=== PATIENT | male | born 1965 | race American Indian/Alaskan Native ===

== ENCOUNTER 2016-09-12 19:45 | Emergency (ER) | payer BC ==
--- NOTE | 2016-09-13 00:31 | Emergency Department Report ---
ED Anxiety HPI - General Chief Complaint: Medical Clearance Stated Complaint: DIZZINESS,DEPRESSION Time Seen by Provider: 09/13/16 00:22 Source: patient Mode of arrival: Ambulatory - History of Present Illness Initial Comments: 50-year-old male presents to the emergency room with complaints of our out of his anxiety medicine. Patient lives in [place] and he usually takes mirtazapine 30 mg as needed for his insomnia and anxiety with depression. Patient denies any other complaints. MD Complaint: anxiety, other (insomnia) -: Gradual Symptoms: other (unable to sleep) Place: home Previous History of Same: Yes Severity: mild Quality: constant Provoking factors: none known Improves With: medication (Mirtazapine 30mg) Worsens With: nothing - Related Data Home Medications: Previous Rx's Medication Instructions Recorded Last Taken Type Mirtazapine 30 mg PO DAILY #15 tablet 09/13/16 Unknown Rx Allergies/Adverse Reactions: Allergies Allergy/AdvReac Type Severity Reaction Status Date / Time Penicillins Allergy Unknown Verified 09/12/16 20:24 ED Review of Systems ROS: Stated complaint: DIZZINESS,DEPRESSION Other details as noted in HPI Comment: All other systems reviewed and negative Constitutional: denies: chills, fever Eyes: denies: eye pain, eye discharge, vision change ENT: denies: ear pain, throat pain Respiratory: denies: cough, shortness of breath, wheezing Cardiovascular: denies: chest pain, palpitations Endocrine: no symptoms reported Gastrointestinal: denies: abdominal pain, nausea, diarrhea Genitourinary: denies: urgency, dysuria Musculoskeletal: denies: back pain, joint swelling, arthralgia Skin: denies: rash, lesions Neurological: denies: headache, weakness, paresthesias Psychiatric: denies: anxiety, depression Hematological/Lymphatic: denies: easy bleeding, easy bruising ED Past Medical Hx - Past Medical History Previous Medical History?: Yes Hx Hypertension: Yes Hx Psychiatric Treatment: Yes (depression) - Surgical History Past Surgical History?: No - Social History Smoking Status: Never Smoker Substance Use Type: Prescribed - Medications Home Medications: Home Medications Medication Instructions Recorded Confirmed Last Taken Type Mirtazapine 30 mg PO DAILY #15 tablet 09/13/16 Unknown Rx ED Physical Exam - General Limitations: No Limitations General appearance: alert, in no apparent distress - Head Head exam: Present: atraumatic, normocephalic - Eye Eye exam: Present: normal appearance - ENT ENT exam: Present: mucous membranes moist - Neck Neck exam: Present: normal inspection - Respiratory Respiratory exam: Present: normal lung sounds bilaterally. Absent: respiratory distress - Cardiovascular Cardiovascular Exam: Present: regular rate, normal rhythm. Absent: systolic murmur, diastolic murmur, rubs, gallop - GI/Abdominal GI/Abdominal exam: Present: soft, normal bowel sounds - Rectal Rectal exam: Present: deferred - Extremities Exam Extremities exam: Present: normal inspection - Back Exam Back exam: Present: normal inspection - Neurological Exam Neurological exam: Present: alert, oriented X3 - Psychiatric Psychiatric exam: Present: normal affect, normal mood - Skin Skin exam: Present: warm, dry, intact, normal color. Absent: rash ED Course Vital Signs 09/12/16 20:25 Temperature 98.7 F Pulse Rate 85 Respiratory 18 Rate Blood Pressure 142/99 Blood Pressure 142/99 [Left] O2 Sat by Pulse 100 Oximetry Critical care attestation.: If time is entered above; I have spent that time in minutes in the direct care of this critically ill patient, excluding procedure time. ED Disposition Clinical Impression: Medication refill Depression Qualifiers: Depression Type: major depressive disorder Major depression recurrence: recurrent Active/Remission status: currently active Major depression episode severity: mild Qualified Code(s): F33.0 - Major depressive disorder, recurrent, mild Disposition: DISCHARGED TO HOME OR SELFCARE Is pt being admited?: No Does the pt Need Aspirin: No Condition: Good Instructions: Depression (ED) Prescriptions: Mirtazapine 30 mg PO DAILY #15 tablet Referrals: PRIMARY CARE, [Primary Care Provider] - 3-5 Days
[2016-09-13 00:48] VITALS: BP 147/89
== END 2016-09-13 00:47 | disposition home or self-care (01) ==
LOC: ED 19:45
DX: F33.0 Major depressive disorder, recurrent, mild (principal); Z76.0 Encounter for issue of repeat prescription; I10 Essential (primary) hypertension; Z88.0 Allergy status to penicillin
CPT/HCPCS: 99282